=== PATIENT | male | born 2000 | race Caucasian/White ===

== ENCOUNTER 2024-10-15 15:31 | Outpatient (CLI) | payer BC, SELFPAY ==
--- NOTE | ~2024-10-15 | XR_ITS ---
Lumbosacral Spine: AP and lateral views Clinical History: Pain Findings: There are apparently 6 lumbar type vertebral bodies. The normal lordotic curve is maintaine d. The vertebral bodies and posterior elements are intact. The intervertebral disc spaces are prese rved. The sacroiliac joints are normally outlined. Impression: No significant abnormality. Probably 6 lumbar type vertebral bodies present. Reviewed, dictated and finalized at location . Impression: No significant abnormality. Probably 6 lumbar type vertebral bodies present.
== END 2024-10-15 15:32 | disposition home or self-care (01) ==
LOC: CHSIMG 15:37
PROVIDERS: PCP Family Medicine; Visit Provider Family Medicine
DX: M25.551 Pain in right hip (principal)
CPT/HCPCS: 72100

== ENCOUNTER 2024-10-18 16:16 | Outpatient (RCR) | payer BC, SELFPAY ==
--- NOTE | 2024-10-18 18:18 | OPREHPOC ---
Outpatient Therapy Plan of Care This is a Multidisciplinary Plan of Care that may contain components documented by all disciplines (PT, OT, and ST.) PT Problem 1 PT Problem #1 Knowledge Deficit PT Goal 1 Goal / Goal Update Independent and compliant with HEP. Target Visit 2 PT Problem 2 PT Problem #2 Pain PT Goal 1 Goal / Goal Update Pt to report being able to sit for his whole [facility] shift (approx. 5 hours) without onset of lumbar/ hip pain. Target Visit 6 PT Problem 3 PT Problem #3 Impaired Strength PT Goal 1 Goal / Goal Update Pt to improve bilat hip strength to 5/5. Pt to improve core strength to 4+/5. Target Visit 6 PT Problem 4 PT Problem #4 Impaired Functional Mobility PT Goal 1 Goal / Goal Update Pt to report 10% or less perceived disability on LEFS. Pt to demonstrate and verbalize good understanding of postural awareness and correct posture as it pertains to working from home. Target Visit 6
--- NOTE | 2024-10-18 18:19 | PTOPEVAL1 ---
Assessment and note entered by Subha Ann, PT Evaluation Information Assessment Status Evaluation ICD-10 Condition Codes (PT) Pain in low back M54.50,Pain in right hip M25.551 Onset 07/19/24 Subjective Information Pt reports onset of R hip pain a few months ago. States he initially went to the doctor who gave him naproxen which helped but now his hip is flared up again. States he thinks his pain is due to his posture as he works from home for [employer]. States he works 4-5 hours at a time and is seated for the whole shift. He states his pain is shooting/stabbing in nature and worsens when he slouches forward, which he states he does a lot when working. Reported Pain Level Pain Score 3: Self Report Assessment PT Clinical Summary Mr. Corrales is a 24 yo male who presents for skilled PT evaluation for R hip/lumbar region pain. His pain is stabbing in nature and is reproduced with slouched posture and palpation to the QL muscle belly in the lumbar spine. He demonstrates moderate postural deficits as well as proximal hip and core weakness. He will benefit from skilled PT intervention addressing postural awareness, pain relief and strengthening to be able to perform daily functional and occupational tasks with less pain. Plan of Care Interventions Electrical Stimulation,Hot Pack/Cold Pack,Manual Therapy,Mechanical Traction,Neuro Re-education, Patient/Caregiver Education,Therapeutic Activities ,Therapeutic Exercise,Self-Care/Home Management Other Interventions TPDN PT Services Indicated Yes Treatment Frequency and 1x/week for 6 visits Duration These treatments will address the objective and functional deficits as defined above. The patient will be advanced safely and appropriately in order for the patient to progress towards his/her prior level of function. Additional exercises will be introduced and as well as a comprehensive home exercise program upon discharge, if needed, ?to ensure carryover of functional gains achieved in the clinic. This treatment plan has been reviewed and agreement upon by the patient.
--- NOTE | 2024-11-22 07:11 | PCPTNOTE ---
Pt wants to be discharged. Reports he is feeling much better.
--- NOTE | 2024-11-22 17:06 | PTOPDC ---
Assessment and note entered by Subha Ann, PT Evaluation Information Assessment Status Discharge - Pt Not Present ICD-10 Condition Codes (PT) Pain in low back M54.50,Pain in right hip M25.551 Onset 07/19/24 Subjective Information See below. Assessment PT Clinical Summary Mr. Corrales attended 3 skilled PT visits addressing low back and R hip pain. He called us today and stated he is feeling better and would like to discharge from therapy at this time, and that if his pain returns he will follow up again with his doctor. Plan of Care PT Services Indicated No
== END 2024-11-22 17:59 | disposition home or self-care (01) ==
LOC: CHSPT 16:16
PROVIDERS: PCP Family Medicine; Visit Provider Family Medicine
DX: M25.551 Pain in right hip (principal); M54.50 Low back pain, unspecified
CPT/HCPCS: 97110; 97112; 97140; 97161